=== PATIENT | male | born 1960 | race Caucasian/White ===

== ENCOUNTER 2017-07-04 09:00 | Day surgery (SDC) | payer BC ==
[~2017-07-04] VITALS: Ht 180.3 cm; Wt 114.3 kg
[~2017-07-04 09:00] MED LIST: ANAPROX DS550 MG PO; CYCLOBENZAPRINE10 MG PO; KEFLEX250 MG PO; PREDNISONE20 MG PO; PROPECIA1 MG PO; VICODIN 5-5001 EACH PO
[2017-07-04] MEDS ORDERED: PROSCAR5 MG PO (09:24)
--- NOTE | 2017-07-04 11:06 | NUR ---
JUAN M HARE IN WITH PT, FINISHING UP WITH IV. HE SEEMS RELAXED WITH HIS JULIUS BY HIS SIDE. PT REQUESTED PRAYER. WILL FOLLOW NEEDED
--- NOTE | 2017-07-04 12:17 | NUR ---
07/04/17 1217 Janie Conway PT ARRIVES TO PACU AT 1214. IMMEDIATELY PT'S AIRWAY SUPPORT IS REMOVED. HE BEGINS TO COUGH THEN SNORE ONCE AIRWAY IS REMOVED.
--- NOTE | 2017-07-04 13:20 | NUR ---
PATIENT BACK IN DAY SURGERY ROOM FROM PACU. C/O PAIN 4/10 IN RIGHT GROIN. RIGHT GROIN DRESSING CDI. ICE PACK TO RIGHT GROIN. IV SITE WNL. DENIES NAUSEA. GIVEN ICE WATER AND PUDDING. SCDs ON. AT BEDSIDE. CALL LIGHT WITHIN REACH.
[2017-07-04] MEDS ORDERED: HYDROCODON-ACE1 EAC8 PO (14:20)
--- NOTE | 2017-07-04 15:47 | NUR ---
1445: PATIENT ASSISTED OOB AND TO BATHROOM. GAIT STEADY. VOID WITHOUT DIFFICULTY. GAIT STEADY BACK TO ROOM. MEDICATED WITH ADDITIONAL PAIN PILL FOR 5/10. LUNCH ORDERED. AT BEDSIDE. DISCHARGE INSTRUCTIONS GIVEN TO PATIENT AND . 1537: PATIENT TOLERATED SOUP AND SANDWICH. STATES READY TO GO HOME. IV DC'D WNL. DRESSING APPLIED. PATIENT DISCHARGED TO HOME WITH VIA WHEELCHAIR.
--- NOTE | 2017-07-05 15:20 | OR ---
[facility] [address], [place] [address] Signed DATE OF PROCEDURE: 07/04/17 PREOPERATIVE DIAGNOSIS: Reducible right inguinal hernia. POSTOPERATIVE DIAGNOSES Reducible right indirect inguinal hernia. Cord lipoma. PROCEDURES: Right Karmen onlay mesh inguinal herniorrhaphy. ESTIMATED BLOOD LOSS: None. INDICATIONS Felicity is a 56-year-old gentleman who happens to work, doing [employer] for [employer]. It is very heavy physical work. He said the last month he has had a lot of pain and swelling in the right groin. With activity, it is at least 6/10 and with minimal activity it drops down to about 3/10. He is pretty certain it goes back inside, but he said it is becoming more and more difficult. He started talking to his friends who informed him he probably had a hernia. He had been off to his primary care provider. He was then asked to see me as a general surgeon. On exam, I found that he did have a pmdukeit-hx-cybdw, but reducible right inguinal hernia. His left groin was unremarkable. Both testicles were unremarkable. I gave Felicity and his a booklet in the office on hernias. We looked at that together in detail. He understands the nature of an inguinal hernia along with the difference between a primary suture repair and a mesh repair. He understands expected intraop and postop course. There is risk to surgery including, but not limited to bleeding, infection, scarring, change in contour of the skin, damage to the nerves, ischemic orchitis recurrent hernias and chronic pain. He has expressed understanding and would like to proceed. DESCRIPTION OF PROCEDURE I met with Felicity and his in the preop area. We all agreed it was the right groin and we marked that appropriately. After this, he was taken into the operating room and placed in the supine position under general endotracheal tube anesthesia. He was given preoperative antibiotics along with subcutaneous heparin. SCDs were utilized. He was then prepped and draped in the usual sterile fashion. We utilized a standard oblique incision over the right groin and carried it down to the tissue bluntly and with the cautery. The external oblique fascia was opened along its length and developed medially and laterally. The ilioinguinal iliohypogastric nerves were visualized and protected throughout the case. The cord structures were elevated at the level of pubic tubercle with the help of a Mary drain. We encountered a moderate-sized cord lipoma which was dissected free and we suture ligated at level of deep ring and amputated and passed off the field. After this, we approached the cord structures at the level of deep ring on Electronically Signed By: DERICK CHICAS MD 07/05/17 1520 PATIENT NAME: FELICITY VILLAR OPERATIVE REPORT DATE OF : 56 PHYSICIAN: DERICK CHICAS MD REPORT #: [id number] REPORT IS CONFIDENTIAL AND NOT TO BE RELEASED WITHOUT AUTHORIZATION [facility] [address], [place] [address] Signed the anteromedial side and we opened that up, and sure enough, we found a fdxmklud-xr-cdcty hernia sac. It was carefully dissected free and suture ligated at its neck. The distal portion was amputated and passed off the field. After this, a piece of flat Prolene mesh was cut to his groin and a slit was made in the mesh to accommodate the cord structures at the level of deep ring. The mesh was held in place medially and laterally with the help of running #1 Prolene suture. There was no undue tension of the mesh around the cord structures at the level of deep ring. After this, local anesthetic was copiously injected in the operative field. The wound was irrigated and suctioned out until clear. The external oblique fascia was closed over the repair with the help of a running 2-0 PDS suture. The Breanna's fascia was reapproximated with a running 3-0 Monocryl suture. The dermis was reapproximated with interrupted 3-0 subcuticular Monocryl sutures. The skin edges were reapproximated with a running 6-0 fast absorbing plain gut suture. Dry gauze and tape were then applied. Felicity was then awakened from his anesthesia, extubated in the OR, taken to recovery room in stable condition. Derick Chicas MD AB/Modl /[id number] cc: Candelario Oh MD Electronically Signed By: DERICK CHICAS MD 07/05/17 1520 PATIENT NAME: FELICITY VILLAR OPERATIVE REPORT DATE OF : 56 PHYSICIAN: DERICK CHICAS MD REPORT #: [id number] REPORT IS CONFIDENTIAL AND NOT TO BE RELEASED WITHOUT AUTHORIZATION
== END 2017-07-04 15:37 | disposition home or self-care (01) ==
LOC: DS 09:00
PROVIDERS: Colon & Rectal Surgery
PROC: 0YU50JZ Supplement Right Inguinal Region with Synthetic Substitute, Open Approach (ICD-10-PCS; principal; 2017-07-04 10:45)
DX: K40.90 Unilateral inguinal hernia, without obstruction or gangrene, not specified as recurrent (principal); D17.6 Benign lipomatous neoplasm of spermatic cord; J30.2 Other seasonal allergic rhinitis; N40.0 Benign prostatic hyperplasia without lower urinary tract symptoms; Z98.41 Cataract extraction status, right eye; Z98.42 Cataract extraction status, left eye; Z90.49 Acquired absence of other specified parts of digestive tract; Z98.890 Other specified postprocedural states; Z79.899 Other long term (current) drug therapy
CPT/HCPCS: 00830; 90674; C1781; J0330; J0690; J1100; J1644; J1885; J2250; J2405; J2704; J3010; J7120

== ENCOUNTER 2022-10-17 07:10 | Day surgery (SDC) | payer BC ==
[~2022-10-17] VITALS: Ht 180.3 cm; Wt 120.7 kg
[~2022-10-17 07:10] MED LIST changes: +HYDROCODON-ACE1 EAC8 PO; +PROSCAR5 MG PO
--- NOTE | 2022-10-17 08:31 | NUR ---
PT ALERT, ORIENTED AND SUPPORTED BY HIS JULIUS. PT HAS HAD SCOPE PREVIOUS REQUESTED PRAYER, AND THEN PRAYED FOR ME. JULIUS WILL REMAIN FOR DC.
--- NOTE | 2022-10-17 09:00 | NUR ---
10/17/22 0900 Lilly Uribe 0852-PATIENT ARRIVED TO PACU ON 2L NC RR EVEN. PATIENT DROWSY REACTIVE TO VERBAL STIMULI DENIES PAIN OR NAUSEA. LAYING LEFT LATERAL. ABDOMEN SOFT IVF INFUSING. 0856-PATIENT SLEEPING APNEIC AROUSES TO VERBAL STIMULI ENCOURAGED DEEP BREATHING. 2L NC 98%. STOP BANG SCORE OF 3 WILL SEND HANDOUT TO PCP. DENIES PAIN OR NAUSEA.
--- NOTE | 2022-10-17 09:48 | NUR ---
VERONIKAVED AWAKE TALKING ABOUT SCHOOL AND KIDS TODAY. DRINKING WATER.
--- NOTE | 2022-10-17 11:09 | OR ---
[facility] [address], [place] [address] Signed DATE OF OPERATION: 10/17/2022 SURGEON: Derick Quinonez MD PREOPERATIVE DIAGNOSIS: Hyperplastic colonic polyps in 2015 at age 55. POSTOPERATIVE DIAGNOSES: 1. A 5 mm polyp at 18 cm (sigmoid colon). 2. A 4 mm polyp at 7 cm (rectum). PROCEDURE: Colonoscopy with hot biopsy. ESTIMATED BLOOD LOSS: None. INDICATIONS: Felicity is a 62-year-old gentleman asked to see me for a followup colonoscopy. He underwent a screening colonoscopy in [address] 55 [address] Mcknight. He had two small hyperplastic polyps removed. He had done well with Versed and fentanyl at that time. He told me he has no current lower GI complaints. No family history of colon cancer or polyps. In the office, I gave Ca pamphlet on colonoscopy and we reviewed the nature of the test. There is risk including, but not limited to gas bloating, crampy abdominal pain, bleeding, perforation requiring surgery, and missed diagnosis. We also reviewed the need for the IV conscious sedation. He had expressed understanding and wished to proceed. DESCRIPTION OF PROCEDURE: Felicity was taken into our endoscopy suite and placed in the left lateral decubitus position. He was given a total of 7 mg of Versed and 125 mcg of fentanyl to cover the case. A digital rectal exam was performed and this was unremarkable. There were no external hemorrhoids. Good sphincter tone. The prostate gland is a little indurated. After this, the adult colonoscope had been introduced and advanced under direct visualization of camera. It did take a little extra sedation in order to get the camera around into the cecum itself. Apparently, he told the nurse he had been awake a little during his first colonoscopy. He said it was not particularly uncomfortable, however. We could easily see the appendiceal orifice and ileocecal valve. The scope was then slowly withdrawn. We took pictures throughout for photodocumentation. The two polyps were easily removed with the help of hot biopsy forceps. There was no diverticulosis. Electronically Signed By: DERICK QUINONEZ MD 10/17/22 1109 PATIENT NAME: FELICITY VILLAR OPERATIVE REPORT DATE OF : 56 REPORT #: [id number] PHYSICIAN: DERICK QUINONEZ MD PCP: STEFANIE PRICE MD REPORT IS CONFIDENTIAL AND NOT TO BE RELEASED WITHOUT AUTHORIZATION [address] [address] Signed Upon retroflexion of scope, there was no additional pathology noted above the anal canal. After this, the gas was suctioned out, the colonoscope removed. Felicity tolerated the procedure quite well. RECOMMENDATIONS: I will see Felicity back in my office in 7 to 14 days to review his results. Derick Quinonez MD ALB/MODL /[id number] cc: MD Stefanie Edmonds MD Patient Chart Copies: DERICK QUINONEZ MD, RUSSELL BARR MD ~ Electronically Signed By: DERICK QUINONEZ MD 10/17/22 1109 PATIENT NAME: FELICITY VILLAR SHANEL OPERATIVE REPORT DATE OF : 56 REPORT #: [id number] PHYSICIAN: DERICK QUINONEZ MD PCP: STEFANIE PRICE MD REPORT IS CONFIDENTIAL AND NOT TO BE RELEASED WITHOUT AUTHORIZATION
--- NOTE | 2022-10-18 16:25 | PATH ---
[facility] [address] [facility] [place], [place] [address] Signed SPECIMEN(S): A COLON POLYP AT 18 CM SPECIMEN(S): B COLON POLYP AT 7 CM SPECIMEN SOURCE: A. COLON POLYP AT 18 CM B. COLON POLYP AT 7 CM CLINICAL HISTORY: History of polyps. Post: Polyps x 2. FINAL PATHOLOGIC DIAGNOSIS: A. Colon polyp at 18 cm: - Hyperplastic polyp (one fragment). B. Colon polyp at 7 cm: - Tubular adenoma (one fragment). JVR:[facility]:C2NR MICROSCOPIC EXAMINATION: Histologic sections of all submitted blocks are examined by light microscopy. These findings, together with the gross examination, support the pathologic diagnosis. GROSS DESCRIPTION: A. The specimen, labeled and designated "Leandra, colon polyp at 18 cm," is received in formalin and consists of one edmonds soft tissue fragment, 0.1 cm. Entirely submitted in (A1). B. The specimen, labeled and designated "Leandra, colon polyp at 70 cm," is received in formalin and consists of one edmonds soft tissue fragment, 0.1 cm. Entirely submitted in (B1). JS (under the direct supervision of a pathologist) The Gross Description was prepared using a voice recognition system. The report was reviewed for accuracy; however, sound-alike word errors, addition and/or deletions may occur. If there is any question about this report, please contact Client Services. PERFORMING LABORATORY: The technical component was performed by [facility], [address] [place] [id number] (CLIA# [id number]). Professional interpretation was performed by [facility], [address] [place] [id number] (CLIA#: [id number]). PATIENT NAME: FELICITY VILLAR PATHOLOGY DATE OF : 56 REPORT #: [id number] PHYSICIAN: [facility] PCP: STEFANIE PRICE MD REPORT IS CONFIDENTIAL AND NOT TO BE RELEASED WITHOUT AUTHORIZATION [facility] [address] [place] [id number] Signed Diagnostician: Wilfrido Joel MD Pathologist Electronically Signed 10/18/2022 Copies: ~ PATIENT NAME: FELICITY VILLAR PATHOLOGY DATE OF : 56 REPORT #: [id number] PHYSICIAN: [facility] PCP: STEFANIE PRICE MD REPORT IS CONFIDENTIAL AND NOT TO BE RELEASED WITHOUT AUTHORIZATION
== END 2022-10-17 10:00 | disposition home or self-care (01) ==
LOC: DS 07:10
PROVIDERS: ATTEND Colon & Rectal Surgery
PROC: 0DJD8ZZ Inspection of Lower Intestinal Tract, Via Natural or Artificial Opening Endoscopic (ICD-10-PCS; principal; 2022-10-17 08:15)
DX: Z12.11 Encounter for screening for malignant neoplasm of colon (principal); D12.6 Benign neoplasm of colon, unspecified; I10 Essential (primary) hypertension; E66.9 Obesity, unspecified; Z86.010 Personal history of colon polyps
CPT/HCPCS: 99153; G0500; J2250; J3010; J7121